=== PATIENT | female | born 1970 | race Hispanic/Latino ===

== ENCOUNTER 2017-11-03 08:12 | Day surgery (SDC) | payer OTHER ==
[2017-11-03] MEDS ORDERED: Lactated Ringer's 1,000 ML IV ONE (09:00)
[2017-11-03] MEDS ORDERED: Lidocaine PF 2% (5 ml) Inj (For Cardiac Arrhy) IV ONE (10:39)
[2017-11-03] MEDS ORDERED: Propofol 10 mg/ml Inj (20 ML) ONE (10:39)
[2017-11-03 11:22] VITALS: TEMP 97
[2017-11-03 11:35] VITALS: BP 112/63; PULSE 93; RESP 16; O2SAT 99
== END 2017-11-03 12:10 | disposition home or self-care (01) ==
LOC: H.ENDO 08:12
PROVIDERS: ATTEND Internal Medicine Gastroenterology
DX: Z12.11 Encounter for screening for malignant neoplasm of colon (principal); R19.4 Change in bowel habit; K52.9 Noninfective gastroenteritis and colitis, unspecified; K22.8 Other specified diseases of esophagus; K44.9 Diaphragmatic hernia without obstruction or gangrene; K29.70 Gastritis, unspecified, without bleeding; R10.13 Epigastric pain; R76.8 Other specified abnormal immunological findings in serum
CPT/HCPCS: 43239; 45378; 88305; J2704; J7120